=== PATIENT | male | born 2000 | race Caucasian/White ===

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

== ENCOUNTER 2023-11-22 02:54 | Emergency (ER) | payer OTHER ==
[~2023-11-22] VITALS: Ht 170.2 cm; Wt 73.7 kg
[2023-11-22 03:32] VITALS: BP 161/99
== END 2023-11-22 03:32 | disposition home or self-care (01) ==
LOC: ED 02:54
DX: Z02.89 Encounter for other administrative examinations (principal)
CPT/HCPCS: 99283